=== PATIENT | male | born 1955 | race Caucasian/White ===

== ENCOUNTER 2019-08-05 10:00 | Inpatient (IN) | payer OTHER ==
[~2019-08-05] VITALS: Ht 180.3 cm; Wt 87.3 kg
[2019-08-05 10:11] VITALS: BP 146/80
[2019-08-05 10:43] LABS: HEMOGLOBIN 16.1 gm/dL (14.0-18.0); MCH 34.3 pg (26.0-34.0); MCHC 35.1 g/dL (28.0-37.0); MCV 97.8 fL (80.0-100.0); MPV 9.4 fl. (7.2-11.1); NUCLEATED RBCS 0 /100WBC; PLATELET COUNT* 242 thou/uL (150-400); RDW-CV 12.6 % (10.5-14.5); WBC 6.8 thou/uL (4.0-11.0)
[2019-08-05 10:52] LABS: ANION GAP 7 mmol/L (7-16); BUN 12 mg/dL (7-18); CALCIUM 8.7 mg/dL (8.5-10.1); CHLORIDE 102 mmol/L (98-107); CO2 29 mmol/L (21-32); CREATININE 1.1 mg/dL (0.6-1.3); GLUCOSE 85 mg/dL (70-99); POTASSIUM 4.1 mmol/L (3.5-5.1); SODIUM 138 mmol/L (136-145)
[2019-08-05 11:03] LABS: ALKALINE PHOSPHATASE 78 U/L (46-116); NT-PRO BRAIN NAT PEPTIDE 35 pg/mL (<300); SGOT 14 U/L (15-37); SGPT 35 U/L (30-65); TOTAL BILIRUBIN 0.9 mg/dL (<0.1-1.0); TOTAL PROTEIN 7.3 g/dL (6.4-8.2); TROPONIN-I LEVEL <0.06 ng/mL (<0.06)
[2019-08-05 11:10] LABS: ABSOLUTE EOSINOPHILS 0.7 thou/uL (0.0-0.7); ABSOLUTE LYMPHOCYTES 2.4 thou/uL (0.8-5.3); ABSOLUTE NEUTROPHILS 3.7 thou/uL (1.6-8.1); PLATELET ESTIMATE ADEQUATE
[2019-08-05 16:57] VITALS: BP 116/50
[2019-08-05 17:30] VITALS: BP 113/56
[2019-08-05 20:00] VITALS: BP 128/61
[2019-08-05 23:40] VITALS: BP 117/48
[2019-08-06 04:00] VITALS: BP 113/56
[2019-08-06 05:00] LABS: ABSOLUTE LYMPHOCYTES 0.7 thou/uL (0.8-5.3); ABSOLUTE MONOCYTES 0.1 thou/uL (0.0-1.2); ABSOLUTE NEUTROPHILS 12.5 thou/uL (1.6-8.1); BASOPHILS 0.1 %; HEMATOCRIT 41.6 % (42.0-52.0); LYMPHOCYTES 4.9 %; MCH 33.5 pg (26.0-34.0); MCHC 33.8 g/dL (28.0-37.0); MCV 99.1 fL (80.0-100.0); MONOCYTES 1.1 %; MPV 10.1 fl. (7.2-11.1); NUCLEATED RBCS 0 /100WBC; PLATELET COUNT* 227 thou/uL (150-400); POLYS 93.9 %; RBC 4.19 mil/uL (4.50-6.00); RDW-CV 12.6 % (10.5-14.5); WBC 13.3 thou/uL (4.0-11.0)
[2019-08-06 05:09] LABS: ANION GAP 13 mmol/L (7-16); BUN 14 mg/dL (7-18); CALCIUM 8.3 mg/dL (8.5-10.1); CHLORIDE 103 mmol/L (98-107); CHOLESTEROL 153 mg/dL (<200); CO2 24 mmol/L (21-32); CREATININE 1.3 mg/dL (0.6-1.3); GLUCOSE 152 mg/dL (70-99); HDL CHOLESTEROL 36 mg/dL (>40); LDL CHOLESTEROL 106 mg/dL (<100); POTASSIUM 3.9 mmol/L (3.5-5.1); SODIUM 140 mmol/L (136-145); TC:HDL 4.3 Ratio (Not establshd); TRIGLYCERIDE 57 mg/dL (<150); VLDL 11 mg/dL (<40)
[2019-08-06 05:11] LABS: HEMOGLOBIN 14.1 gm/dL (14.0-18.0)
[2019-08-06 05:43] LABS: SERUM ASSESSMENT CLEAR
[2019-08-06 07:30] VITALS: BP 113/49
[2019-08-06] MEDS ORDERED: PREDNISONE 10 M10 MG PO (10:17)
[2019-08-06] MEDS ORDERED: VENTOLIN HFA 1818 GM INH (10:19)
[2019-08-06] MEDS ORDERED: AUGMENTIN 875-1 EACH PO (10:20)
[2019-08-06] MEDS ORDERED: PROTONIX40 M1 PO (10:21)
[2019-08-06 10:42] VITALS: BP 113/56
--- NOTE | 2019-08-06 12:43 | EKG ---
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
--- NOTE | 2019-08-08 10:16 | CON ---
[address] [address] CONSULTATION Name: AINSLEYDL TYLER Room: [address] IN M.R.#: [id number] Admission: 08/05/19 Attend Phys: Charlie Forman MD Discharge: 08/06/19 Date of : 51 Report #: [id number] THIS REPORT FOR: //name// CC: Charlie Forman [facility] physician/PCP DATE OF SERVICE: 08/05/2019 CARDIOLOGY CONSULTATION HISTORY OF PRESENT ILLNESS: The patient is a 64-year-old white male who I was asked to see in the hospital today after he complained of being short of breath. The patient states he has not seen a doctor for years. 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 He smoked 2 packs of cigarettes a day for years. He denies chronic cough. He notes that in April of this year he was sent on the toilet when he felt lightheaded. After a coughing spell, he actually fell to the ground. He may have had a brief loss of consciousness. There was no seizure activity. He has had no further syncope. Since that time, he has had progressive shortness of breath. He actually passed out. However, he stopped smoking. He went to urgent care and was started on albuterol inhaler and steroid for a couple of months. He continues to develop exertional dyspnea. He has also noticed some pressure in his chest with exertion. Denied the pain radiating down his arms. He has had no palpitations or edema. He denies waking up at night short of breath. PAST MEDICAL HISTORY: He had removal of a thyroglossal cyst as a child. No history of hypertension, diabetes, or hyperlipidemia. MEDICATIONS: He is on no chronic medications. FAMILY HISTORY: His father had a heart murmur. SOCIAL HISTORY: He is . He and his live in [place]. REVIEW OF SYSTEMS: He notes that in 2004, he was having shortness of breath and chest pain. He was admitted to [facility]. He apparently had a heart catheterization that showed no significant coronary artery disease. REVIEW OF SYSTEMS: He has no history of a stroke. He had a peptic ulcer years ago. No liver disease. No kidney disease. No cancer. No psychiatric illness. No chronic skin condition. PHYSICAL EXAMINATION: GENERAL: Revealed an elderly male, lying in stretcher, and appeared in no acute distress. VITAL SIGNS: He had a blood pressure of 130/70, pulse is 70, [place] [address] CONSULTATION Name: DL SCHMITZ Room: [address]#: [id number] Admission: 08/05/19 Attend Phys: Charlie Forman MD Discharge: 08/06/19 Date of : 51 Report #: [id number] afebrile. HEENT: He is anicteric. Conjunctivae pink. Mucous membranes moist. NECK: Neck veins nondistended. No carotid bruits. Neck is supple. CHEST: No distant breath sounds. CARDIOVASCULAR: Regular rate and rhythm. No significant murmurs. ABDOMEN: Soft. EXTREMITIES: Had no edema. Posterior tibial pulse 1+. SKIN: Cool and dry. NEUROLOGIC: Nonfocal. LYMPH: No adenopathy. MUSCULOSKELETAL: No joint effusion. RADIOLOGICAL DATA: His ECG on admission showed a sinus rhythm with no ST or T-wave change. His workup in the Emergency Room today, he had a portable chest x-ray that showed normal heart size, otherwise clear lung finley. He actually had a CT scan of the chest using a PE protocol in the Emergency Room that showed no pulmonary embolus or hyperinflated lung finley consistent with COPD. LABORATORY WORK: Sodium 138, creatinine 1.1, and glucose 85. Liver function studies were normal. Troponin 0.06. BNP 35. White blood cell count 6.8 and hemoglobin 16.1. IMPRESSION AND RECOMMENDATIONS: 1. Shortness of breath, suspect secondary to chronic obstructive pulmonary disease. 2. Previous tobacco abuse. The patient no longer smokes. 3. Previous syncopal spell. Suspect post-tussive syncope. 4. Previous history of peptic ulcer disease. 5. History of chest pressure. The patient has risk factors for coronary artery disease. After the patient's lung disease has been treated, I would consider pharmacologic nuclear stress testing to rule out ischemic heart disease. <ELECTRONICALLY SIGNED> By: Jaime Richard MD, FACC 08/08/19 1016 1613 2048Danabil Richard MD, FACC /nt
== END 2019-08-06 10:45 | disposition home or self-care (01) | DRG 193 ==
LOC: M.ERS 10:00 → M.TBA-ER 11:24 → M.2W 17:08
PROVIDERS: Emergency Medicine Emergency Medical Services; ADMIT Internal Medicine
DX: R09.1 Pleurisy (principal); J18.9 Pneumonia, unspecified organism; I10 Essential (primary) hypertension; E78.5 Hyperlipidemia, unspecified; E11.9 Type 2 diabetes mellitus without complications; J98.09 Other diseases of bronchus, not elsewhere classified; J43.9 Emphysema, unspecified; Z82.49 Family history of ischemic heart disease and other diseases of the circulatory system; Z87.11 Personal history of peptic ulcer disease; Z87.891 Personal history of nicotine dependence; Z79.82 Long term (current) use of aspirin; Z79.899 Other long term (current) drug therapy

== ENCOUNTER 2021-03-08 06:17 | Inpatient (IN) | payer MEDICARE ==
[~2021-03-08] VITALS: Ht 182.9 cm; Wt 88.5 kg
[~2021-03-08 06:17] MED LIST: AUGMENTIN 875-1 EACH PO; PREDNISONE 10 M10 MG PO; PROTONIX40 M1 PO; VENTOLIN HFA 1818 GM INH
[2021-03-08] MEDS ORDERED: PULMICORT0.5 MG/2 M INH (06:27)
[2021-03-08] MEDS ORDERED: [UNRECOGNIZED DRUG - OTHER] (06:27)
[2021-03-08 06:59] LABS: ABSOLUTE EOSINOPHILS 0.7 thou/uL (0.0-0.7); ABSOLUTE LYMPHOCYTES 1.1 thou/uL (0.8-5.3); ABSOLUTE MONOCYTES 0.6 thou/uL (0.0-1.2); ABSOLUTE NEUTROPHILS 6.4 thou/uL (1.6-8.1); BASOPHILS 0.5 %; EOSINOPHILS 7.7 %; HEMATOCRIT 45.1 % (42.0-52.0); HEMOGLOBIN 15.2 gm/dL (14.0-18.0); LYMPHOCYTES 12.2 %; MCH 33.8 pg (26.0-34.0); MCHC 33.6 g/dL (28.0-37.0); MCV 100.6 fL (80.0-100.0); MONOCYTES 6.8 %; MPV 8.6 fl. (7.2-11.1); NUCLEATED RBCS 0 /100WBC; PLATELET COUNT* 196 thou/uL (150-400); POLYS 72.8 %; RBC 4.48 mil/uL (4.50-6.00); RDW-CV 13.2 % (10.5-14.5); WBC 8.8 thou/uL (4.0-11.0)
[2021-03-08 07:12] LABS: INR 0.9; PROTIME 10.1 Seconds (9.20-11.50)
[2021-03-08 07:13] LABS: CALCIUM 8.5 mg/dL (8.5-10.1); CREATININE 0.9 mg/dL (0.6-1.3); POTASSIUM 4.5 mmol/L (3.5-5.1)
[2021-03-08 07:21] LABS: ALBUMIN 3.6 g/dL (3.4-5.0); MAGNESIUM 1.9 mg/dL (1.8-2.4); TOTAL BILIRUBIN 0.7 mg/dL (<0.1-1.0); TOTAL PROTEIN 6.8 g/dL (6.4-8.2)
--- NOTE | 2021-03-08 10:54 | EKG ---
[place] [address] ELECTROCARDIOGRAM REPORT Name: DL SCHMITZ Room: [place] [address] ADM IN ..#: [id number] Admission: 03/08/21 Attend Phys: Brittney Gray MD Discharge: Date of : 51 Date of Service: 03/08/216[address] Report #: [id number] THIS REPORT FOR: //name// [facility] ED Test Date: 2021-03-08 Test Time: 06:21:41 Pat Name: DL SCHMITZ Department: Room: 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 : 1955 Requested By: Connie Snyder Order Number: [id number] MD: Jaime Richard Measurements Intervals [place] Rate: 91 P: 87 [place]: 145 QRS: 88 QRSD: 105 T: 73 QT: 364 QTc: 448 Interpretive Statements Sinus rhythm Borderline right axis deviation Borderline low voltage, extremity leads Baseline wander in lead(s) V1,V2,V3,V4,V5 Compared to ECG 08/05/2019 10:14:38 Sinus arrhythmia no longer present Electronically Signed On 03-08-2021 10:54:31 CDT by Jaime Richard [email or web address] <ELECTRONICALLY SIGNED> By: Jaime Richard MD, [facility] 03/08/21 1054 0 0 Jaime Richard MD, [facility] /EPI
[2021-03-08 11:16] VITALS: BP 132/101
[2021-03-08 12:00] VITALS: BP 123/57
[2021-03-08 20:00] VITALS: BP 114/57
[2021-03-09 00:11] VITALS: BP 118/53
[2021-03-09 04:17] VITALS: BP 121/51
--- NOTE | 2021-03-09 04:38 | NUR ---
PATIENT SLEPT WELL DURING THIS SHIFT. 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 PT WITH COURSE/WHEEZY LUNG SOUNDS. PT ON O2 @ 2 LITERS PER NASAL CANNULA. PT UP AD SERIGO TO BATHROOM. PT WITH 2100 BLOOD SUGAR OF 244; HUMALOG 10 UNITS GIVEN. PT IS HOPING TO GO HOME TODAY. WILL CONTINUE TO MONITOR.
[2021-03-09 04:42] LABS: HEMATOCRIT 40.7 % (42.0-52.0); HEMOGLOBIN 13.6 gm/dL (14.0-18.0); MCH 33.6 pg (26.0-34.0); MCHC 33.6 g/dL (28.0-37.0); MPV 9.4 fl. (7.2-11.1); RBC 4.06 mil/uL (4.50-6.00); RDW-CV 12.7 % (10.5-14.5); WBC 16.9 thou/uL (4.0-11.0)
[2021-03-09 05:01] LABS: CALCIUM 8.9 mg/dL (8.5-10.1); CREATININE 1.1 mg/dL (0.6-1.3); POTASSIUM 4.3 mmol/L (3.5-5.1)
--- NOTE | 2021-03-09 07:20 | NUR ---
CHANGE OF SHIFT BEDSIDE REPORT GIVEN PATIENT SEEN AT BEDSIDE, IN BED ASLEEP ASSUMED PATIENT CARE
[2021-03-09 08:00] VITALS: BP 116/51
[2021-03-09 12:00] VITALS: BP 122/58
[2021-03-09 16:00] VITALS: BP 127/65
[2021-03-09 19:20] VITALS: BP 128/61
[2021-03-10] VITALS (7 sets, daily range): BP systolic 112–140; BP diastolic 46–73
--- NOTE | 2021-03-10 07:20 | NUR ---
CHANGE OF SHIFT BEDSIDE REPORT GIVEN PATIENT SEEN AT BEDSIDE, IN BED RESTING ASSUMED PATIENT CARE
[2021-03-11 03:39] VITALS: BP 130/76
--- NOTE | 2021-03-11 05:23 | NUR ---
PT IS ABLE TO COMMUNICATE HIS NEEDS TO STAFF EFFECTIVELY. HE HAS DENIED THE NEED FOR PAIN MEDICATION UP TO THIS TIME. PT LOST IV ACCESS EARLY THIS SHIFT; CONTACTED AND ORDER RECEIVED TO LEAVE IV OUT UNTIL FURTHER NOTICE. POSSIBLE DISCHARGE TODAY.
[2021-03-11] MEDS ORDERED: NEBULIZER MISCELL (06:57)
[2021-03-11] MEDS ORDERED: PULMICORT0.5 MG/2 M INH (06:57)
[2021-03-11] MEDS ORDERED: BROVANA15 MCG/2 M INH (06:57)
[2021-03-11] MEDS ORDERED: PREDNISONE 10 M10 M1 PO (06:57)
[2021-03-11] MEDS ORDERED: SINGULAIR 10 MG10 M1 PO (06:57)
[2021-03-11] MEDS ORDERED: DOXYCYCLINE 10100 MG PO (06:57)
[2021-03-11 11:41] VITALS: BP 109/67
--- NOTE | 2021-03-11 13:15 | NUR ---
Pt is A&O. Resides at home with . Independent. Pt has a neb. No hx of HH or SNF. Pt needs home o2 at ma, Aprct to deliver tank.
--- NOTE | 2021-03-11 13:20 | NUR ---
Cards following. On ivabx and meripenum. 4L o2. Pt stable for EGD per pulm. Having loose stools. Therapies seeing. Goal home at ut.
[2021-03-11 15:41] VITALS: BP 109/67
[2021-03-11 16:34] VITALS: BP 131/70
--- NOTE | 2021-03-11 17:24 | NUR ---
ASSUMED PT CARE AT 0730. PT IS A&OX4, PLEASANT AND RESPONDS READILY. PT REPORTS NO CHEST PAIN AND SOA ONLY ON EXERTION. ASSESSMENT COMPLETED PT VOICES NO CONCERNS AT THIS TIME. MEDICATIONS ADMINISTERED ORDERED. NEW ORDERS TO DISCHARGE PT TO HOME, PT VERBALIZES UNDERSTANDING. PT SENT HOME WITH PRN O2. PT'S HERE TO GET PT AT APPROX 1800. PT TRANSPORTED VIA WC ACCOMPANIED BY NURSING STAFF TO DISCHARGE WITH SPOUSE.
== END 2021-03-11 18:30 | disposition home or self-care (01) | DRG 189 ==
LOC: M.ERS 06:17 → M.TBA-ER 07:59 → M.2W 07:59
PROVIDERS: Emergency Medicine; ADMIT Family Medicine; ATTEND Family Medicine
DX: J96.01 Acute respiratory failure with hypoxia (principal); R65.11 Systemic inflammatory response syndrome (SIRS) of non-infectious origin with acute organ dysfunction; J96.02 Acute respiratory failure with hypercapnia; J43.9 Emphysema, unspecified; F17.200 Nicotine dependence, unspecified, uncomplicated; Z20.822 Contact with and (suspected) exposure to COVID-19; Z79.899 Other long term (current) drug therapy